=== PATIENT | female | born 1965 | race Caucasian/White ===

== ENCOUNTER 2019-02-18 06:12 | Observation (INO) ==
[2019-02-18] MEDS ORDERED: Ringers Solution, Lactated 1,000 ML IVC SCH ×2 (06:30→07:30)
[2019-02-18] MEDS ORDERED: cefOXitin 2,000 MG in Water for inj. (sterile) 20 ML IVP ONE (06:30)
[2019-02-18] MEDS ORDERED: Ondansetron ODT 4 MG TAB.RAPDIS SL ONE (07:17)
[2019-02-18] MEDS ORDERED: *HR* HYDROmorphone (PF) 1 MG/ML SYRINGE IVP PRN (07:17)
[2019-02-18] MEDS ORDERED: *HR* Promethazine 25 MG/ML VIAL IVP PRN (07:17)
[2019-02-18] MEDS ORDERED: diazePAM 5 MG TABLET PO ONE (07:17)
[2019-02-18] MEDS ORDERED: Acetaminophen IV 1,000 MG/100 ML INFUS..BTL IVPB ONE (07:17)
[2019-02-18] MEDS ORDERED: *HR* Meperidine 25 MG/ML SYRINGE IVP PRN (07:17)
[2019-02-18] MEDS ORDERED: Famotidine 20 MG/2 ML VIAL IVP ONE (07:17)
[2019-02-18] MEDS ORDERED: *HR* OxyCODONE Immed Rel 5 MG TABLET PO PRN (07:17)
[2019-02-18] MEDS ORDERED: Scopolamine Patch 1.5 MG PATCH.TD72 TD ONE (07:17)
[2019-02-18] MEDS ORDERED: *HR* Propofol 200 MG/20 ML VIAL IVP ONE (07:43)
[2019-02-18] MEDS ORDERED: Ondansetron 4 MG/2 ML VIAL ONE (07:43)
[2019-02-18] MEDS ORDERED: Lidocaine -MPF 2% 2 ML VIAL ONE (07:43)
[2019-02-18] MEDS ORDERED: Dexamethasone 4 MG/ML VIAL ONE (07:43)
[2019-02-18] MEDS ORDERED: *HR* Midazolam HCl 2 MG/2 ML VIAL ONE (07:43)
[2019-02-18] MEDS ORDERED: *HR* Rocuronium Bromide 50 MG/5 ML VIAL ONE (07:43)
[2019-02-18] MEDS ORDERED: *HR* FentaNYL (PF) 100 MCG/2 ML VIAL ONE ×2 (07:43→08:50)
[2019-02-18] MEDS ORDERED: Lidocaine -MPF 4% 5 ML AMPUL ONE (07:49)
[2019-02-18] MEDS ORDERED: *HR* Succinylcholine 200 MG/10 ML VIAL IVP ONE (08:50)
[2019-02-18] MEDS ORDERED: *HR* HYDROMORPHONE 2 MG/ML VIAL ONE (09:20)
[2019-02-18] MEDS ORDERED: Neostigmine Methylsulfate 3 MG/3 ML SYRINGE ONE (09:58)
[2019-02-18] MEDS: Ketorolac 15 MG/ML VIAL IVP PRN (12:46)
[2019-02-18] MEDS: 0.9 % Sodium Chloride 1,000 ML IVC SCH (12:46)
[2019-02-18] MEDS ORDERED: Baclofen 10 MG TABLET PO PRN (14:53)
[2019-02-18] MEDS ORDERED: Ondansetron 4 MG/2 ML VIAL IVP ONE (18:46)
[2019-02-19] MEDS: 0.9 % Sodium Chloride 1,000 ML IVC SCH (04:16)
[2019-02-19] MEDS: Ketorolac 15 MG/ML VIAL IVP PRN (06:44)
[2019-02-19] MEDS ORDERED: Pantoprazole 40 MG VIAL IVP SCH (07:30)
[2019-02-19 08:42] VITALS: BP 124/83
== END 2019-02-19 11:35 | disposition home or self-care (01) ==
LOC: SAMDAY 06:12 → 3ANU 06:12
PROVIDERS: ADMIT Surgery; ATTEND Surgery